=== PATIENT | female | born 1975 | race Caucasian/White ===

== ENCOUNTER → 2017-01-11 | Outpatient (CLI) | payer MEDICARE ==
[~2017-01-11] VITALS: Ht 198.1 cm; Wt 121.0 kg
[~2017-01-11] MED LIST: REGADENOSON 0.4mg/5ml INJECTION IV ONE; SALINE FLUSH 10ml SYRINGE ONE
--- NOTE | 2017-01-12 09:57 | ADENOSINEF ---
PHARMACOLOGICAL/LOW=LEVEL EXERCISE STRESS NUCLEAR SCAN DATE OF SERVICE 01/11/2017 INDICATIONS Exertional chest pain. NARRATIVE OF PROCEDURE The patient was injected with a 99mTc Myoview dose of 12.7 mCi at rest. The patient was unable to fully exercise on the treadmill due to a bad back. She underwent Lexiwalk protocol with Lexiscan injection of 0.4 mg followed by a 99mTc Myoview dose of 31.6 mCi. Stress and rest perfusion images were obtained per protocol. The patient did experience some chest pressure that she described as different from her clinical chest pain. She had some associated nausea and back pain - all spontaneously resolved. Blood pressure 120/83. Pulse rate 102 beats per minute. Blood pressure rafiq to 168/94 mmHg. Heart rate rafiq to 143 beats per minute. Rest EKG showed sinus tachycardia, T-wave abnormality in III, aVF with inferior Q-waves significant in lead III and equivocal/borderline in lead aVF and quite narrow and considered nondiagnostic in lead II. Tiny Q-waves noted in V5 and V6. During pharmacological/low-level exercise stress there was no ST-depression or elevation diagnostic of ischemia. No arrhythmia. Stress and rest perfusion images were reviewed. Rotatogram shows marked breast tissue attenuation artifacts. SPECT images showed markedly reduced uptake throughout the anterior wall, anteroseptum and anterolateral wall. Partial redistribution noted on rest images in the anteroseptum. Differential breast tissue attenuation versus reversible ischemia. In addition, there is moderately reduced uptake in the lateral/inferolateral wall which appears to redistribute on rest images consistent with reversible ischemia of a moderate amount. Gated images show normal wall motion, normal contractility, normal LV ejection fraction visually estimated at about 50% (measured EF was 45% on stress images) and 57% on rest images. I don't appreciate diagnostic or significant wall motion abnormality. No abnormal extracardiac uptake. IMPRESSION 1. Inability to exercise on treadmill. 2. Pharmacological/low-level exercise stress nuclear scan clinically associated with chest pressure. 3. Electrically abnormal baseline EKG, as above, with inferior Q-waves and T-wave abnormality. Nevertheless, no stress-induced ST-depression or elevation. 4. Stress and rest perfusion images show moderate reversible ischemia in the inferior/inferolateral wall. Breast tissue attenuation artifact involving the anteroseptum/mid anterior wall with some reversibility as well, raising possibility of reversible ischemia in this distribution. 5. Normal left ventricular systolic function with preserved ejection fraction as described above. Will review results with the patient and discuss further management. JOLEEND
== END ==
LOC: IMA 09:21
PROVIDERS: ATTEND Internal Medicine Cardiovascular Disease
DX: I47.1 Supraventricular tachycardia (principal); R00.2 Palpitations
CPT/HCPCS: 78452; 93017; A9502; J2785